=== PATIENT | female | born 2000 | race Two or more races ===

== ENCOUNTER 2022-10-02 05:50 | Emergency (ER) | payer SELFPAY ==
[~2022-10-02] VITALS: Ht 157.5 cm; Wt 77.2 kg
[2022-10-02 05:59] VITALS: BP 115/70
[2022-10-02] MEDS ORDERED: ACET1CAP14 PO (06:59)
[2022-10-02] MEDS ORDERED: BENZ1LOZ3 MT (06:59)
[2022-10-02] MEDS ORDERED: PENI500T2 PO (06:59)
[2022-10-02] MEDS ORDERED: PRED20TA2 PO (06:59)
[2022-10-02] MEDS ORDERED: DexAMETHasone SOD PHOS 10MG/1ML VIAL INJ IM ONE (07:00)
[2022-10-02] MEDS ORDERED: ACETAMINOPHEN 500 MG TAB PO ONE (07:00)
[2022-10-02] MEDS ORDERED: cefTRIAXone SOD 1,000 MG VL IM ONE (07:00)
== END 2022-10-02 08:18 | disposition home or self-care (01) ==
LOC: ER 05:50
DX: J02.0 Streptococcal pharyngitis (principal); Z79.899 Other long term (current) drug therapy
CPT/HCPCS: 87880; 96372; 99284; J0696; J1100